=== PATIENT | female | born 1950 | race Caucasian/White ===

== ENCOUNTER 2019-01-10 14:21 | Outpatient (CLI) | payer BC ==
[~2019-01-10] VITALS: Ht 152.4 cm; Wt 92.1 kg
[2019-01-10 14:46] VITALS: BP 162/88
[2019-01-10] MEDS ORDERED: HYDR25TA4 PO (14:50)
[2019-01-10] MEDS ORDERED: RAMI10CA69 PO (14:50)
== END 2019-01-10 14:45 | disposition home or self-care (01) ==
LOC: PREOP 14:21
PROVIDERS: ATTEND Surgery
DX: Z01.818 Encounter for other preprocedural examination (principal)
CPT/HCPCS: 87081

== ENCOUNTER 2019-01-18 07:55 | Day surgery (SDC) | payer BC ==
[2019-01-18] VITALS (11 sets, daily range): BP systolic 120–174; BP diastolic 70–93
[~2019-01-18] VITALS: Ht 152.4 cm; Wt 92.1 kg
[~2019-01-18 07:55] MED LIST: HYDR25TA4 PO; RAMI10CA69 PO
[2019-01-18] MEDS ORDERED: CLINDAMYCIN 600 MG/50 ML IVPB 50 ML IV ONE ×2 (08:30→08:34)
[2019-01-18] MEDS ORDERED: CATHETER FLUSH 10 ML SYR IV PRN (08:45)
[2019-01-18] MEDS: LACTATED RINGERS 1,000 ML IV PRN ×2 (08:50→13:09)
[2019-01-18] MEDS ORDERED: LIDOCAINE/EPI 1%-1:100,000 (XYLOCAINE) 20ML ONE (10:48)
[2019-01-18] MEDS ORDERED: BUPIVACAINE 0.5% 30 ML (SENSORCAINE) VIAL ONE (10:48)
--- OUTSIDE RECORDS SUMMARY | 2019-01-18 11:03 | XMS REPORT | Continuity of Care Document ---
Author Organization Unknown Address Unknown Allergies There is no data. Medications There is no data. Problems Date Dx Coded Attending Type Code Diagnosis Diagnosed By 01/07/2015 TANIA ELLIOTT MD Ot V76.12 01/13/2016 Ot V76.12 OTH SCREEN MAMMO-MALIGN NEOPLASM OF [place] 01/13/2016 Ot V76.12 OTH SCREEN MAMMO-MALIGN NEOPLASM OF [place] 01/13/2016 TANIA ELLIOTT MD Ot V76.12 OTH SCREEN MAMMO-MALIGN NEOPLASM OF [place] 01/13/2016 TANIA ELLIOTT MD Ot V76.12 OTH SCREEN MAMMO-MALIGN NEOPLASM OF [place] 01/15/2016 UMA ABBOTT MD P Ot M23.231 DERANG OF MEDIAL MENISCUS DUE TO OLD TEA 01/15/2016 UMA ABBOTT MD Ot M23.231 DERANG OF MEDIAL MENISCUS DUE TO OLD TEA 01/22/2016 UMA ABBOTT MD Ot M23.231 DERANG OF MEDIAL MENISCUS DUE TO OLD TEA 01/22/2016 SCAR OWEN, UMA Kuo Ot M23.231 DERANG OF MEDIAL MENISCUS DUE TO OLD TEA 05/21/2016 SCAR OWEN, UMA Kuo Ot M54.16 RADICULOPATHY, LUMBAR REGION 07/01/2016 Ot V76.12 OTH SCREEN MAMMO-MALIGN NEOPLASM OF [place] 07/01/2016 Ot V76.12 OTH SCREEN MAMMO-MALIGN NEOPLASM OF [place] 07/01/2016 TANIA ELLIOTT MD Ot V76.12 OTH SCREEN MAMMO-MALIGN NEOPLASM OF [place] 07/01/2016 TANIA ELLIOTT MD Ot V76.12 OTH SCREEN MAMMO-MALIGN NEOPLASM OF [place] 07/01/2016 UMA ABBOTT MD Ot M23.231 DERANG OF MEDIAL MENISCUS DUE TO OLD TEA 07/01/2016 SCAR OWEN, UMA Kuo Ot M54.16 RADICULOPATHY, LUMBAR REGION Procedures There is no data. Results There is no data. Encounters ACCT No. Visit Date/Time Discharge Status Pt. Type Provider Facility Loc./Unit Complaint [id number] 04/20/2016 10:42:00 04/20/2016 23:59:59 CLS Outpatient UMA ABBOTT MD [facility] RAD LUMBAR RADICULOPATHY [id number] 01/13/2016 16:50:00 01/13/2016 23:59:59 CLS Outpatient UMA ABBOTT MD [facility] RAD DERANGEMENT OF OTHER MEDIAL MENISCUC DUE TO OLD TE [id number] 12/12/2014 14:45:00 12/12/2014 23:59:59 CLS Outpatient TANIA ELLIOTT MD [facility] RAD SCREENING [id number] 12/11/2013 15:00:00 12/11/2013 23:59:59 CLS Outpatient TANIA ELLIOTT MD [facility] RAD SCREENING [id number] 01/18/2019 11:20:00 PEN Preadmit RAISA LOPEZ DO [facility] SDC LESIONS RIGHT EYEBROW [id number] 06/20/2012 10:56:00 Document Registration [id number] 05/13/2011 13:06:00 Document Registration
[2019-01-18] MEDS ORDERED: fentaNYL INJECTION 100 MCG/2 ML AMP ONE (11:17)
[2019-01-18] MEDS ORDERED: LIDOCAINE PF 2% 5 ML (XYLOCAINE) VIAL ONE (11:17)
[2019-01-18] MEDS ORDERED: proPOfol 200 MG/20 ML (DIPRIVAN) VIAL IV ONE (11:17)
[2019-01-18] MEDS ORDERED: ONDANSETRON 4 MG/2 ML (SDV) Z0FRAN ONE (11:17)
[2019-01-18] MEDS ORDERED: MIDAZOLAM 2 MG/2 ML (VERSED) VIAL ONE (11:18)
[2019-01-18] MEDS ORDERED: SEVOFLURANE (ULTANE) 15 ML INHAL SOLN ONE ×2 (11:22→13:15)
--- NOTE | 2019-01-18 12:47 | Progress Note-Pre Operative ---
Pre-Operative Progress Note H&P Reviewed The H&P was reviewed, patient examined and no changes noted. Time Seen by Provider: 12:06 Date H&P Reviewed: January 18, 2019 Time H&P Reviewed: 12:07 Pre-Operative Diagnosis: Right eyebrow mass x 2 RAISA LOPEZ DO January 18, 2019 12:47
[2019-01-18] MEDS ORDERED: BSS 15 ML ONE (13:13)
--- NOTE | 2019-01-18 13:31 | Progress Note-Post Operative ---
Post-Operative Progess Note Surgeon (s)/Guitar Repairer (s) Surgeon RAISA LOPEZ DO Guitar Repairer: none Pre-Operative Diagnosis Right eyebrow mass x 2 Post-Operative Diagnosis same pending path Procedure & Operative Findings Date of Procedure 01/18/19 Procedure Performed/Findings Excision Right eyebrow mass x 2, 4.2 cm incision Anesthesia Type GET Estimated Blood Loss Estimated blood loss (mL): scant Specimens/Packing Specimens Removed eyebrow skin and 2 masses, one on skin and one below RAISA LOPEZ DO January 18, 2019 13:31
[2019-01-18] MEDS ORDERED: ACHD5005 PO (13:32)
--- NOTE | 2019-01-18 13:34 | Discharge Inst-Surgical ---
Discharge Inst-Surgical Depart Medication/Instructions New, Converted or Re-Newed RX: RX Given to Pt/Family Patient Instructions Follow up Appt: Make appointment for 1 week. [phone] Instructions: No strenuous activity. May shower in 24 hours, no tub bath or soaking. Use incentive spirometer at home as directed. No Smoking Skin/Wound Care: May remove bandages in am. You need to leave the Dermabond on incision it will fall off on it's own. Symptoms to Report: Appetite Changes, Extremity Discoloration, Numbness/Tingling, Swelling Increased , Bleeding Excessive, Eyesight Changes, Pain Increased, Urine Color Change, Constipation(Persistent), Fever over 101 degree F, Pain/Pressure in chest, Urinating Difficulty, Cough Up/Vomit Blood, Heart Beat Irreg/Pounding, Pain/ Pressure in jaw, Cramps in feet or legs, Lightheadedness, Pain/Pressure in shoulder, Diarrhea(Persistent), Memory Changes Suddenly, Questions/Concerns, Weight gain consecutive days, Dizziness/Fainting, Nausea/Vomiting, Shortness of Breath, Weight gain over 2 pounds If questions or concerns contact your physician Or seek help at emergency department. Activity Activity as Tolerated: Yes Activity Instructions: Avoid Stress to Incision Driving Instructions: No Driving/Refer to Diet Discharge Diet: No Restrictions Diet After 24 Hours: Clear Liquid if Nauseous If Any Problems/Questions/Issu: Contact Your Physician, Go to Emergency Room Skin/Wound Care Infection Signs and Symptoms: Increased Redness, Foul Odor of Wound, Increased Drainage, Skin Itchy or Has a Rash, Increased Swelling, Temperature Above 101 F Bathing Instructions: Shower Stitches/Sangeeta/Dermabond Dis: Dermabond Ice Pack: Ice On and Off Site (as needed for pain) RAISA LOPEZ DO January 18, 2019 13:34
[2019-01-18] MEDS ORDERED: ONDANSETRON 4 MG/2 ML (SDV) Z0FRAN IVP PRN (13:45)
[2019-01-18] MEDS ORDERED: HYDROmorphone 2 MG/ML VIAL (DILAUDID) IV ONE (13:45)
--- NOTE | 2019-01-18 14:01 | Anesthesia-General Post-Op ---
General Patient Condition Mental Status/LOC: Same as Preop Cardiovascular: Satisfactory Nausea/Vomiting: Absent Respiratory: Satisfactory Pain: Controlled Complications: Absent Post Op Complications Complications None Follow Up Care/Instructions Patient Instructions None needed. Anesthesia/Patient Condition Patient Condition Patient is doing well, no complaints, stable vital signs, no apparent adverse anesthesia problems. No complications reported per nursing. MOUNIKA RON CRNA January 18, 2019 14:01
--- NOTE | 2019-01-18 15:00 | NUR ---
RATES RIGHT EYEBROW SURGICAL SITE PAIN 3. PAIN MED OFFERED, REFUSED. STATES SHE IS "FINE", WILL WAIT TO TAKE PAIN MED IF NEEDED AT HOME. ICE PACK TO SITE.
--- NOTE | 2019-01-18 15:40 | NUR ---
HAS BEEN UP TO BR X2 TO VOID. GAIT STEADY. SURGICAL SITE PAIN RATED 2. ALERT AND CHEERFUL, READY FOR DISMISSAL.
--- NOTE | 2019-01-19 00:06 | OPERATIVE REPORT ---
DATE OF SERVICE: PREOPERATIVE DIAGNOSES: 1. Right eyebrow skin mass. 2. Right eyebrow subcutaneous mass. POSTOPERATIVE DIAGNOSES: 1. Right eyebrow skin mass. 2. Right eyebrow subcutaneous mass, pending pathology. PROCEDURES: 1. Excision of subcutaneous mass. 2. Excision of skin mass 4.1 cm incision. SURGEON: David Hernandez DO. LEGAL ARBITRATOR: None. ANESTHESIA: General endotracheal tube. SPECIMEN: Skin mass and subcutaneous mass sent together. BLOOD LOSS: Scant. FLUIDS: Per anesthesia. POSTOPERATIVE CONDITION: Stable. INDICATION FOR PROCEDURE: The patient is a 68-year-old female who had a mass in the right eyebrow just lateral to the nose that has been getting bigger and was bothering her. She wanted to get removed, also noted at that time to have another suspicious mass looked like a skin lesion in the eyebrow. Had a discussion with the patient, we elected to remove both of them at the same time. FINDINGS: The patient had 2 masses, one with subcutaneous mass and one with the skin mass removed at the same time. PROCEDURE NOTE: After informed consent was obtained, the patient was brought to the operating room, placed on the table in supine position. She was sterilely prepped and draped in normal fashion. Local lidocaine used to infiltrate the skin in the right eyebrow towards the nose. An elliptical incision was then made with an #15 blade, carried down through the skin into subcutaneous tissue. This elliptical incision measured about 4.1 cm. This encompassed the skin lesion and then part of the subcutaneous mass, but then had to dissect down around it to get the subcutaneous fat out, took out the elliptical incision with sharp dissection with #15 blade as well as Bovie electrocautery and again dissected down to be able to remove the subcutaneous mass. Once they were removed then created a flap superiorly to be able to bring down the brow little bit to close the incision nicely. I then closed the incision with 4-0 undyed Monocryl 3 interrupted sutures and then 5-0 undyed Monocryl 3 interrupted subcuticular stitches as well as one simple stitch. Area was cleaned and dried. Dermabond placed as well as dressing. The patient then transferred to recovery room in stable condition. Sponge, instrument and needle counts were correct at the end of the case. Job ID: [id number] DocumentID: [id number] Dictated Date: 01/18/2019 16:34:28 Fare Collector Date: 01/19/2019 00:06:17 Dictated By: DO STEPHANIE GUTIERREZ
== END 2019-01-18 15:40 | disposition home or self-care (01) ==
LOC: SDC 07:55
PROVIDERS: ATTEND Surgery
DX: D23.39 Other benign neoplasm of skin of other parts of face (principal); D22.39 Melanocytic nevi of other parts of face; I10 Essential (primary) hypertension; R73.03 Prediabetes; Z87.442 Personal history of urinary calculi; Z79.899 Other long term (current) drug therapy; Z88.0 Allergy status to penicillin; Z91.041 Radiographic dye allergy status
CPT/HCPCS: 82962; 88305

== ENCOUNTER → 2019-01-27 | Outpatient (CLI) | payer BC ==
[~2019-01-27] MED LIST changes: +ACHD5005 PO
--- NOTE | 2019-01-27 10:22 | Diagnostic Imaging Report ---
PROCEDURE: US abdomen complete. TECHNIQUE: Multiple real-time grayscale images were obtained over the abdomen in various projections. INDICATION: Right upper quadrant pain and nausea. The liver is normal in size at 15.3 cm. No discrete liver mass is identified. The portal vein is patent and shows normal direction of flow. Pancreas is partially obscured by bowel gas. Spleen is normal in size at 9.0 cm. The aorta is non-aneurysmal. IVC appears patent. The gallbladder appears to contain a small polyp. There is also small amount of sludge but no stones are detected. There is no wall thickening or biliary duct dilatation. Both kidneys demonstrate moderate hydronephrosis. No calculi are seen. There is no ascites. IMPRESSION: 1. Minimal gallbladder sludge. No cholelithiasis or acute cholecystitis is detected. 2. Findings suggestive of llly-sy-yotnpjqy bilateral hydronephrosis. No renal calculi are identified. Dictated by: Dictated on workstation # [id number]
== END ==
LOC: RAD 08:36
PROVIDERS: ATTEND Internal Medicine
DX: K83.8 Other specified diseases of biliary tract (principal); R10.11 Right upper quadrant pain; R11.0 Nausea
CPT/HCPCS: 76700

== ENCOUNTER → 2019-09-07 | Outpatient (CLI) | payer BC, MEDICARE ==
--- NOTE | 2019-09-07 10:04 | Diagnostic Imaging Report ---
PROCEDURE: CT urinary tract, rule out kidney stone. TECHNIQUE: Multiple contiguous axial images were obtained through the abdomen and pelvis without the use of intravenous contrast. Auto Exposure Controls were utilized during the CT exam to meet ALARA standards for radiation dose reduction. INDICATION: Left groin pain for 3 weeks and hematuria. No prior studies are available for comparison. FINDINGS: The lung bases are clear. The liver and gallbladder are unremarkable. No biliary ductal dilatation is seen. The pancreas and spleen are unremarkable. No adrenal mass is detected. There appear to be parapelvic cysts bilaterally. There are some nonobstructing calculi within lower pole calyx of the left kidney. In aggregate these measures 13 mm x 6 mm. No definite ureteral calculi are seen. No bladder calculi are detected. The aorta is normal caliber. The small and large bowel loops are nonobstructed. No free fluid or fluid collection is identified. Calcifications in the uterus are noted consistent with calcified fibroids. No lymphadenopathy in the abdomen or pelvis is seen. IMPRESSION: 1. Probable parapelvic cysts bilateral kidneys. There is also nonobstructing calculi lower pole left kidney. No definite ureteral calculi or hydronephrosis is detected. Dictated by: Dictated on workstation # [id number]
== END ==
LOC: RAD 09:11
PROVIDERS: ATTEND Internal Medicine
DX: N20.0 Calculus of kidney (principal)
CPT/HCPCS: 74176

== ENCOUNTER → 2019-11-15 | Outpatient (CLI) | payer BC, MEDICARE ==
--- NOTE | 2019-11-15 16:29 | Diagnostic Imaging Report ---
INDICATION: Several month history of left hip pain. No known injury. TECHNIQUE: 2 views of the left hip. CORRELATION STUDY: None FINDINGS: Images of the hip demonstrate no evidence for acute fracture. Alignment is anatomic. The femoral head acetabular relationship is unremarkable. The bony trabecular pattern is intact. Soft tissue calcifications over left iliac crest, perhaps injection granulomas and of no significance. Calcifications in the right hemipelvis also likely of no significance. IMPRESSION: 1. Negative for acute bony abnormality of the left hip. Dictated by: Dictated on workstation # [id number]
== END ==
LOC: RAD 15:51
PROVIDERS: ATTEND Internal Medicine
DX: M16.12 Unilateral primary osteoarthritis, left hip (principal)
CPT/HCPCS: 73502

== ENCOUNTER → 2021-11-11 | Outpatient (CLI) | payer BC, MEDICARE ==
--- NOTE | 2021-11-11 16:44 | Diagnostic Imaging Report ---
PROCEDURE: CT urinary tract, rule out kidney stone. TECHNIQUE: Multiple contiguous axial images were obtained through the abdomen and pelvis without the use of intravenous contrast. Auto Exposure Controls were utilized during the CT exam to meet ALARA standards for radiation dose reduction. INDICATION: Left-sided flank pain. History of renal stones. COMPARISON: 09/07/2019. FINDINGS: The heart is unremarkable. Scattered subsegmental atelectasis is seen in the lung bases. Bilateral peripelvic cysts are seen in the kidneys. No evidence of hydronephrosis or obstructing calculi. No perinephric fat stranding. Nonobstructing calculi are seen in the inferior pole of the left kidney measuring up to 0.8 cm. The urinary bladder is nondistended. The liver, spleen, pancreas, and adrenal glands have a normal appearance. The gallbladder is nondistended. There is no pathologically enlarged mesenteric or retroperitoneal adenopathy. The bowel loops are nondilated. There is no free fluid or free air. No acute osseous abnormalities. There is calcified aortic and iliac atherosclerotic plaque without aneurysm. There is no free air, loculated collection, or adenopathy in the pelvis. IMPRESSION: 1. No evidence of hydronephrosis or obstructing calculi. Stable appearance of nonobstructing calculi in the inferior pole of the left kidney. No perinephric inflammatory changes are seen. 2. Prominent peripelvic cysts are seen bilaterally. These appear increased in size since the prior exam. Dictated by: Dictated on workstation # [id number]
== END ==
LOC: RAD 16:15
PROVIDERS: ATTEND Internal Medicine
DX: R10.9 Unspecified abdominal pain (principal); Z87.442 Personal history of urinary calculi
CPT/HCPCS: 74176

== ENCOUNTER → 2021-12-05 | Outpatient (CLI) | payer BC ==
--- NOTE | 2021-12-08 08:53 | Diagnostic Imaging Report ---
INDICATION: Routine screening Comparison is made with prior mammogram from 12/12/2014. 2-D and 3-D bilateral screening mammography was performed with CAD. Both breasts are heterogeneously dense, limiting the sensitivity of mammography. No dominant mass or malignant-appearing microcalcifications are seen. Axillae are unremarkable. IMPRESSION: BI-RADS Category 1 No mammographic features suspicious for malignancy are identified. ACR BI-RADS Category 1: Negative. Result letter will be mailed to the patient. Note: At least 10% of breast cancer is not imaged by mammography. Dictated by: Dictated on workstation # [id number]
== END ==
LOC: RAD 15:19
PROVIDERS: ATTEND Internal Medicine
DX: Z12.31 Encounter for screening mammogram for malignant neoplasm of breast (principal)
CPT/HCPCS: 77063; 77067

== ENCOUNTER → 2022-12-09 | Outpatient (CLI) | payer MEDICARE ==
--- NOTE | 2022-12-09 11:47 | Diagnostic Imaging Report ---
INDICATION: Routine screening. Comparison is made with prior mammogram 12/05/2021 and 12/12/2014. 2-D and 3-D bilateral screening mammography was performed with CAD. CAD is utilized. The current study was also evaluated with a Computer Aided Detection (CAD) system. Both breasts are heterogeneously dense, limiting the sensitivity of mammography. No dominant mass or malignant-appearing microcalcifications are seen. Axillae are unremarkable. IMPRESSION: BI-RADS Category 1 No mammographic features suspicious for malignancy are identified. ACR BI-RADS Category 1: Negative. Result letter will be mailed to the patient. Note: At least 10% of breast cancer is not imaged by mammography. Dictated by: Dictated on workstation # [id number]
== END ==
LOC: RAD 07:17
PROVIDERS: ATTEND Internal Medicine
DX: Z12.31 Encounter for screening mammogram for malignant neoplasm of breast (principal)
CPT/HCPCS: 77063; 77067